=== PATIENT | female | born 1960 | race Caucasian/White ===

== ENCOUNTER 2016-11-29 12:43 | Emergency (ER) | payer MEDICAID ==
[2016-11-29 12:44] VITALS: BMI 38.0
[2016-11-29] MEDS ORDERED: Naproxen 550 mg Tab PO STA (14:45)
[2016-11-29] MEDS ORDERED: Naproxen 550 mg Tab PO ONE (14:58)
--- NOTE | 2016-11-29 15:30 | C.PDOC ---
Time Seen by Provider: 11/29/16 13:41 Chief Complaint (Nursing): Lower Extremity Problem/Injury Past Medical History Vital Signs: Last Vital Signs Temp 98.5 F 11/29/16 13:11 Pulse 76 11/29/16 13:11 Resp 20 11/29/16 13:11 BP 181/100 H 11/29/16 13:11 Pulse Ox 100 11/29/16 13:11 - Medical History PMH: HTN Denies: Chronic Kidney Disease - [facility] Procedures COLONOSCOPY (06/04/14) - Social History Hx Alcohol Use: No Hx Substance Use: No - Immunization History Hx Tetanus Toxoid Vaccination: No Hx Influenza Vaccination: No Hx Pneumococcal Vaccination: No ED Course And Treatment O2 Sat by Pulse Oximetry: 100 Disposition Counseled Patient/Family Regarding: Studies Performed, Diagnosis, Need For Followup, Rx Given - Disposition Referrals: Nat Sutton MD [Staff Provider] - Disposition: HOME/ ROUTINE Disposition Time: 15:30 Condition: STABLE Additional Instructions: FOLLOW UP WITH ORTHOPEDICS WITHIN 1 WEEK USE MEDICATION NEEDED FOR PAIN ELEVATE LEG RETURN TO ER IF SYMPTOMS WORSEN Prescriptions: Naproxen 375 mg PO BID PRN #20 tablet PRN Reason: pain Instructions: Knee Sprain (ED) Print Language: JAMAICAN - POA Present On Arrival: None - Clinical Impression Clinical Impression: Right knee sprain
--- NOTE | 2016-11-29 15:36 | RAD ---
PROCEDURE: Right Knee Radiographs. HISTORY: COMPARISON: None available. FINDINGS: Examination limited by habitus. BONES: No acute displaced fracture. Small suprapatellar enthesophyte. JOINTS: No dislocation. JOINT EFFUSION: No significant joint effusion. OTHER FINDINGS: None. IMPRESSION: No acute displaced fracture, dislocation, or significant joint effusion identified. If symptoms persist, or if there is continued clinical concern, x-ray follow-up in 7-10 days should be considered.
[2016-11-29 16:47] VITALS: BP 162/93; PULSE 67; RESP 18; TEMP 97.9; O2SAT 99
== END 2016-11-29 16:47 | disposition home or self-care (01) ==
LOC: C.ER 12:43
DX: S83.91XA Sprain of unspecified site of right knee, initial encounter (principal); X58.XXXA Exposure to other specified factors, initial encounter; Y93.9 Activity, unspecified; Y92.9 Unspecified place or not applicable